=== PATIENT | male | born 1980 | race Caucasian/White ===

== ENCOUNTER 2021-01-05 20:16 | Emergency (ER) | payer OTHER ==
[2021-01-05 20:23] VITALS: BP 118/75; PULSE 90; TEMP 99.6; BMI 41.5
== END 2021-01-05 21:15 | disposition home or self-care (01) ==
LOC: FER 20:16
DX: S93.602A Unspecified sprain of left foot, initial encounter (principal)
CPT/HCPCS: 73610-TC-LT-FY; 73630-TC-LT; 99284-25